=== PATIENT | female | born 2000 | race Caucasian/White ===

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

== ENCOUNTER 2021-06-03 08:45 | Emergency (ER) | payer OTHER ==
[~2021-06-03] VITALS: Ht 157.5 cm; Wt 82.3 kg
[~2021-06-03 08:45] MED LIST changes: +ACET-683 PO; +IBUP80TA PO
[2021-06-03 08:46] VITALS: BP 127/73
[2021-06-03] MEDS ORDERED: GNP28TAB2 PO (08:53)
== END 2021-06-03 10:40 | disposition left against medical advice (07) ==
LOC: M ED 08:45
DX: Z53.29 Procedure and treatment not carried out because of patient's decision for other reasons (principal)

== ENCOUNTER → 2022-12-19 | Outpatient (REF) | payer OTHER ==
[~2022-12-19] MED LIST changes: +GNP28TAB2 PO
[2022-12-19 20:12] LABS: APPEARANCE, URINE CLOUDY (CLEAR); BACTERIA, URINE AUTO 2+ (NEGATIVE); BILIRUBIN, URINE AUTO NEGATIVE (NEGATIVE); BLOOD, URINE BLOOD 3+ (NEGATIVE); COLOR, URINE YELLOW (YELLOW); GLUCOSE, URINE (UA) AUTO NEGATIVE (NEGATIVE); KETONE, URINE AUTO NEGATIVE (NEGATIVE); LEUKOCYTE ESTERASE, URINE AUTO 3+ (NEGATIVE); MUCUS, URINE SMALL (NEGATIVE); NITRITE, URINE AUTO POSITIVE (NEGATIVE); PROTEIN, URINE AUTO 2+ mg/dL (NEGATIVE); RBC, URINE AUTO 142 /HPF (0-3); SQUAMOUS EPITHELIAL CELL UR AU 9 /HPF (0-6); UROBILINOGEN, URINE AUTO 0.2 mg/dL (0.0-2.0); WBC, URINE AUTO 60 /HPF (0-3)
[2022-12-19 22:00] LABS: GC DNA AMPLIFICATION NEGATIVE (NEGATIVE)
== END ==
LOC: M LAB REF 19:43
PROVIDERS: ATTEND Physician Assistant
DX: N39.0 Urinary tract infection, site not specified (principal)

== ENCOUNTER → 2024-05-14 | Outpatient (REF) | payer OTHER ==
[~2024-05-14] MED LIST changes: +ONDA-282 PO; -ONDA4TAB6 PO
== END ==
LOC: M PLALAB 11:23
PROVIDERS: ATTEND Obstetrics & Gynecology
DX: Z34.91 Encounter for supervision of normal pregnancy, unspecified, first trimester (principal)

== ENCOUNTER → 2024-05-25 | Outpatient (CLI) | payer OTHER ==
[2024-05-25 15:56] LABS: HEMATOCRIT 39.4 % (36.0-47.0); HEMOGLOBIN 13.4 g/dl (12.0-15.5); MEAN CORPUSCULAR HEMOGLOBIN 30.7 pg (27.0-33.0); MEAN CORPUSCULAR VOLUME 90.2 fl (80.0-96.0); PLATELET COUNT, AUTOMATED 222 10^3/uL (150-450); RED BLOOD COUNT 4.37 10^6/uL (4.00-5.40); WHITE BLOOD COUNT 8.5 10^3/uL (4.0-10.0)
[2024-05-25 16:45] LABS: HIV 1&2 SCREEN NEGATIVE (NEGATIVE)
[2024-05-25 17:54] LABS: HEPATITIS C VIRUS ABY INDEX < 0.02 INDEX (<0.8)
[2024-05-25 17:57] LABS: GC DNA AMPLIFICATION NEGATIVE (NEGATIVE)
== END ==
LOC: M PLALAB 13:54
PROVIDERS: ATTEND Obstetrics & Gynecology
DX: Z34.91 Encounter for supervision of normal pregnancy, unspecified, first trimester (principal)

== ENCOUNTER → 2024-06-25 | Outpatient (CLI) | payer OTHER | LOC: M PLALAB 14:23 | PROVIDERS: ATTEND Obstetrics & Gynecology | DX: Z13.79 Encounter for other screening for genetic and chromosomal anomalies (principal) ==

== ENCOUNTER → 2024-08-02 | Outpatient (CLI) | payer OTHER, SELFPAY | LOC: M WHC 13:48 | PROVIDERS: ATTEND Obstetrics & Gynecology | DX: Z34.92 Encounter for supervision of normal pregnancy, unspecified, second trimester (principal) ==

== ENCOUNTER → 2024-08-31 | Outpatient (CLI) | payer OTHER ==
[2024-08-31 14:12] LABS: HEMATOCRIT 34.8 % (36.0-47.0); HEMOGLOBIN 11.6 g/dl (12.0-15.5); MEAN CORPUSCULAR HEMOGLOBIN 31.2 pg (27.0-33.0); MEAN CORPUSCULAR HGB CONC 33.3 g/dl (32.0-36.5); MEAN CORPUSCULAR VOLUME 93.5 fl (80.0-96.0); PLATELET COUNT, AUTOMATED 217 10^3/uL (150-450); RED BLOOD COUNT 3.72 10^6/uL (4.00-5.40); WHITE BLOOD COUNT 9.1 10^3/uL (4.0-10.0)
[2024-08-31 14:13] LABS: GLUCOSE CHALLENGE TEST 1 HOUR 138 MG/DL (LESS THAN 140)
[2024-08-31 14:42] LABS: HIV 1&2 SCREEN NEGATIVE (NEGATIVE)
[2024-08-31 14:50] LABS: HEPATITIS C VIRUS ABY INDEX 0.02 INDEX (<0.8)
[2024-08-31 15:58] LABS: Trichomonas vaginalis (AMP) NOT DETECTED (NEGATIVE)
[2024-08-31 16:21] LABS: GC DNA AMPLIFICATION NEGATIVE (NEGATIVE)
== END ==
LOC: M PLALAB 09:10
PROVIDERS: ATTEND Specialist
DX: Z34.82 Encounter for supervision of other normal pregnancy, second trimester (principal)

== ENCOUNTER 2024-12-18 21:02 | Inpatient (IN) | payer MEDICAID, OTHER ==
[~2024-12-18] VITALS: Ht 157.5 cm; Wt 78.7 kg
[2024-12-18] VITALS (10 sets, daily range): BP systolic 102–136; BP diastolic 57–75
[2024-12-18] MEDS ORDERED: VALT500T PO (21:23)
[2024-12-18] MEDS ORDERED: OXYTOCIN DRIP 30 UNITS in IV 1 EA IV PRN (21:40)
[2024-12-18] MEDS ORDERED: LIDOCAINE 1% MDV 20 ML VIAL INFIL PRN (21:40)
[2024-12-18 22:15] LABS: PLATELET COUNT, AUTOMATED 234 10^3/uL (150-450)
[2024-12-18] MEDS ORDERED: ONDANSETRON 4MG 2ML VIAL IV PRN (22:30)
[2024-12-18] MEDS ORDERED: EPIDURAL/PCA KEYS XX PRN (22:30)
[2024-12-18] MEDS ORDERED: diphenhydrAMINE 50 MG/ML VIAL IV PRN (22:30)
[2024-12-18] MEDS ORDERED: NALOXONE INJ 0.4MG/1ML VIAL IV PRN (22:30)
[2024-12-18] MEDS: FENTANYL/ROPIVACAINE/NACL BAG 100 ML EPIDURAL SCH (22:33)
[2024-12-18 23:24] LABS: HEPATITIS C VIRUS ABY INDEX 0.02 INDEX (<0.8)
[2024-12-18] MEDS: LR 1,000 ML IV SCH (23:52)
[2024-12-18] MEDS: LACTATED RINGER'S 1000 ML IV STA (23:52)
[2024-12-19] VITALS (8 sets, daily range): BP systolic 108–125; BP diastolic 56–80; O2SAT 97–100
[2024-12-19] MEDS ORDERED: ACETAMINOPHEN 500 MG TAB PO PRN (00:35)
[2024-12-19] MEDS ORDERED: ACETAMINOPHEN 325 MG TAB PO PRN (00:35)
[2024-12-19] MEDS ORDERED: IBUPROFEN 800 MG TAB PO PRN (00:35)
[2024-12-19] MEDS ORDERED: RHOGAM 300MCG (1500IU) INJ IM SCH (00:35)
[2024-12-19] MEDS ORDERED: METHYLERGONOVINE MALEATE 0.2 MG TAB PO PRN (00:35)
[2024-12-19] MEDS ORDERED: DOCUSATE SODIUM 100 MG CAPSULE PO PRN (00:35)
[2024-12-19] MEDS: DIBUCAINE 1% OINTMENT 30 GM TOP PRN (05:45)
[2024-12-19] MEDS: IBUPROFEN 600 MG TAB PO PRN (05:46)
[2024-12-19] MEDS: PRENATAL VITAMINS CHEWABLE TABLET PO SCH (09:51)
[2024-12-20 05:47] VITALS: BP 120/84; O2SAT 100
[2024-12-20] MEDS: MEASLES,MUMPS,RUBELLA VACCINE INJ (MMR-II) SC.IMMUN ONE (10:46)
[2024-12-20] MEDS ORDERED: ACET-683 PO (10:59)
[2024-12-20] MEDS ORDERED: IBUP80TA PO (10:59)
== END 2024-12-20 13:30 | disposition home or self-care (01) | DRG 560 ==
LOC: M LDO 21:02 → M LDI 21:35 → M OBS 12-19 02:10
PROVIDERS: ADMIT Specialist; ATTEND Specialist
PROC: 10E0XZZ Delivery of Products of Conception, External Approach (ICD-10-PCS; principal; 2024-12-19)
PROC: 0HQ9XZZ Repair Perineum Skin, External Approach (ICD-10-PCS; 2024-12-19)
PROC: 10907ZC Drainage of Amniotic Fluid, Therapeutic from Products of Conception, Via Natural or Artificial Opening (ICD-10-PCS; 2024-12-19)
DX: O48.0 Post-term pregnancy (principal); O70.0 First degree perineal laceration during delivery; Z3A.40 40 weeks gestation of pregnancy; Z37.0 Single live birth